=== PATIENT | female | born 1985 | race Caucasian/White ===

== ENCOUNTER → 2023-06-25 08:12 | Outpatient (CLI) | payer OTHER, SELFPAY ==
--- NOTE | ~2023-06-25 | MMUS_ITS ---
EXAMINATION: MM diagnostic eda BI w flora, US breast LT limited HISTORY: Palpable mass in the upper outer quadrant of the left breast TECHNIQUE: Craniocaudal, mediolateral, and mediolateral oblique 3-D tomosynthesis images of the nya ts were performed and synthetic 2-D images were generated. CAD analysis was submitted and interpreted . High resolution limited left breast ultrasound was performed. COMPARISON: None, baseline BREAST PARENCHYMAL COMPOSITION: The breasts are heterogeneously dense, which may obscure small masses . FINDINGS: MAMMOGRAPHIC FINDINGS: Right breast: No suspicious mass, calcification, or architectural distortion are identified to sugges t malignancy. Left breast: There is a 12 mm x 10 mm oval, circumscribed, equal density mass in the middle third of the upper outer quadrant of the breast at the 2:00 location corresponding to the palpable abnormality of concern. ULTRASOUND: There is a 12 mm x 9 mm oval, circumscribed, parallel, slightly hypoechoic mass with posterior acoust ic enhancement and internal vascularity at the 1:00 location, 8 cm from the nipple in the left breast corresponding to the palpable abnormality of concern. IMPRESSION: 1. Probably benign left breast mass corresponding to the palpable abnormality of concern. 2. Recommend 6 month follow-up targeted left breast ultrasound. BI-RADS category 3, probably benign findings. Reviewed, dictated and finalized at location A. IMPRESSION: 1. Probably benign left breast mass corresponding to the palpable abnormality o f concern. 2. Recommend 6 month follow-up targeted left breast ultrasound. BI-RADS category 3, probably benign findings.
== END ==
PROVIDERS: PCP Nurse Practitioner Obstetrics & Gynecology; Visit Provider Nurse Practitioner Obstetrics & Gynecology
DX: N63.20 Unspecified lump in the left breast, unspecified quadrant (principal); R92.8 Other abnormal and inconclusive findings on diagnostic imaging of breast
CPT/HCPCS: 76642; 77062; 77066; G0279

== ENCOUNTER 2024-01-25 09:14 | Outpatient (CLI) | payer OTHER, SELFPAY ==
--- NOTE | ~2024-01-25 | US_ITS ---
US breast LT limited DATE: 01/25/2024 12:58 INDICATION: Six-month follow-up of probably benign 1:00 8 cm from nipple approximately 12 x 9 mm slig htly hypoechoic mass noted on 06/25/2023 limited left breast ultrasound examination TECHNIQUE: Targeted ultrasound, flow imaging at 1:00 8 cm from nipple COMPARISON: 06/25/2023 limited left breast ultrasound 06/25/2023 bilateral diagnostic mammogram FINDINGS: Relatively stable circumscribed hypoechoic mass at 1:00 8 cm from nipple, with through arizmendi smission, minimal internal color flow signal. The mammographic and sonographic features and little in terval change in size since 06/25/2023 failure benign diagnosis. IMPRESSION: BI-RADS Category 2: Benign Recommendation: Routine annual mammographic screening Reviewed, dictated and finalized at Location A. Reviewed, dictated and finalized at location A.
== END 2024-01-25 09:15 ==
LOC: MICIMG 09:14
PROVIDERS: PCP Nurse Practitioner Obstetrics & Gynecology; Visit Provider Nurse Practitioner Obstetrics & Gynecology
DX: R92.8 Other abnormal and inconclusive findings on diagnostic imaging of breast (principal)
CPT/HCPCS: 76642

== ENCOUNTER 2025-05-28 15:34 | Outpatient (CLI) | payer OTHER, SELFPAY ==
--- NOTE | ~2025-05-28 | MM_ITS ---
EXAMINATION: MM screening eda BI w flora HISTORY: Screening TECHNIQUE: Craniocaudal and mediolateral oblique 3-D tomosynthesis images were obtained and synthetic 2-D images were generated. CAD analysis was submitted and interpreted. COMPARISON: Comparison to multiple prior studies sequentially, with oldest reviewed study dated 06/25. BREAST PARENCHYMAL COMPOSITION: Dense: The breasts are heterogeneously dense, which may obscure small masses FINDINGS: There is an enlarging mass in the upper outer quadrant of the left breast. The right breast is stable without evidence for malignancy. IMPRESSION: 1. Enlarging left breast mass. 2. Additional mammographic views and possible breast ultrasound are recommended. BI-RADS Category 0: Incomplete: Needs additional imaging evaluation. Reviewed, dictated and finalized at location B. IMPRESSION: 1. Enlarging left breast mass. 2. Additional mammographic views and possible breast ultrasound are recommended . BI-RADS Category 0: Incomplete: Needs additional imaging evaluation.
== END 2025-05-28 15:35 | disposition home or self-care (01) ==
PROVIDERS: PCP Obstetrics & Gynecology Gynecology; Visit Provider Obstetrics & Gynecology Gynecology
DX: Z12.31 Encounter for screening mammogram for malignant neoplasm of breast (principal); R92.8 Other abnormal and inconclusive findings on diagnostic imaging of breast
CPT/HCPCS: 77063; 77067

== ENCOUNTER 2025-08-21 07:41 | Outpatient (CLI) | payer OTHER, SELFPAY ==
--- NOTE | ~2025-08-21 | MMUS_ITS ---
EXAMINATION: MM diagnostic eda BI w flora, US breast BI limited INDICATION: 39-year old female; BI-RADS 0, callback from screening mammogram to evaluate an enlarging left breast mass and a new palpable lump in the upper right breast. COMPARISON: 05/28/2025 and 06/25/2023. TECHNIQUE: Digital breast tomosynthesis True lateral and spot compression of the BILATERAL breast were obtained. A radiopaque skin marker identifies location of right breast palpable lump. FINDINGS: The breasts are heterogeneously dense, which may obscure small masses. Circumscribed mass persists in the superior lateral at middle depth in the left breast. This mass has increased in size in the interval. There is no persistent mammographic abnormality that correlates to the area of palpable lump in the right breast. BILATERAL BREAST ULTRASOUND FINDINGS: Targeted sonographic evaluation of the areas of concern bilaterally was completed. Left breast: At 1:00, 8 cm FN, corresponding to the enlarging mass on mammogram, a round hypoechoic circumscribed mass measuring 1.3 x 1.4 x 1.2 cm is redemonstrated. This mass is larger compared to prior measurement of 1.0 x 1.2 x 0.8 cm on the prior examination completed on 06/25/2023. There is an additional cluster of cysts at 12:00, 6 cm from the nipple in the left breast that measure 0.6 cm Right breast: No sonographic abnormality correlates to the area of palpable lump. IMPRESSION: 1. Indeterminate enlarging Left breast mass at 1:00 location. Recommend biopsy under ultrasound guidance. 2. Left breast cluster of cysts at 12:00 location is considered benign. No further investigation necessary. 3. No mammographic or sonographic abnormality correlate to the area of palpable lump in the Right breast. RECOMMENDATION: Ultrasound-guided core biopsy of left breast mass at 1:00. Clinical management of right breast palpable lump. BI-RADS 4, SUSPICIOUS Reviewed, dictated and finalized at location B. IMPRESSION: 1. Indeterminate enlarging Left breast mass at 1:00 location. Recommend biopsy under ultrasound guidance. 2. Left breast cluster of cysts at 12:00 location is considered benign. No fur ther investigation necessary. 3. No mammographic or sonographic abnormality correlate to the area of palpabl e lump in the Right breast. RECOMMENDATION: Ultrasound-guided core biopsy of left breast mass at 1:00. Clinical management of right breast palpable lump. BI-RADS 4, SUSPICIOUS
== END 2025-08-21 07:42 | disposition home or self-care (01) ==
LOC: MICIMG 07:42
PROVIDERS: PCP Student in an Organized Health Care Education/Training Program; Visit Provider Student in an Organized Health Care Education/Training Program
DX: R92.8 Other abnormal and inconclusive findings on diagnostic imaging of breast (principal); N63.21 Unspecified lump in the left breast, upper outer quadrant; N60.12 Diffuse cystic mastopathy of left breast
CPT/HCPCS: 76642; 77062; 77066; G0279

== ENCOUNTER 2025-09-11 08:44 | Outpatient (CLI) | payer OTHER, SELFPAY ==
--- NOTE | ~2025-09-11 | MMUS_ITS ---
MM post biopsy diagnostic LT, US breast biopsy LT w image EXAMINATION: US GUIDED NEEDLE BIOPSY WITH VACUUM ASSISTANCE DATE: 09/11/2025 10:10 CALL OR CONTACT CENTRE COACH INDICATION: Left breast mass and known prior examination. Ultrasound-guided core biopsy is requested to evaluate for malignancy. BREAST PARENCHYMAL COMPOSITION: Dense: The breasts are heterogeneously dense, which may obscure small masses TECHNIQUE AND FINDINGS: The risks and potential benefits of the procedure were discussed with the patient, and written informed consent was obtained. After sterile preparation of the left breast, 1% lidocaine was utilized for local anesthesia. 1% lidocaine with epinephrine was used for deep anesthesia. A 10G vacuum-assisted biopsy gun needle was advanced through to the outer edge of the region of interest from a lateral approach utilizing sonographic guidance. A total of 4 tissue core samples were obtained through the lesion. An Inrad tissue marker clip was then placed at the biopsy site. Hemostasis was achieved. The patient tolerated procedure well and there was no evidence of immediate complication. The patient was given verbal instructions partly is from the department. Left breast mammograms to document tissue marker clip placement. The tissue samples were submitted to surgical pathology for histologic analysis. IMPRESSION: 1. Successful ultrasound-guided vacuum-assisted biopsy of left breast mass with post procedure mammogram for marker placement. Please refer to pathology report for histologic analysis. Reviewed, dictated and finalized at location B. OR CONTACT CENTRE COACH IMPRESSION: 1. Successful ultrasound-guided vacuum-assisted biopsy of left breast mass wit h post procedure mammogram for marker placement. Please refer to pathology repo rt for histologic analysis.
--- OUTSIDE RECORDS SUMMARY | 2025-09-11 09:00 | XMS_ITS | Clinical Summary ---
Author Organization [facility] Address [address] [place] [address] Care Team Providers Care Human Resources Operations Coordinator Name Role Phone Unavailable Primary Care Provider Unavailabl e Source Comments [facility],non-owned Affiliates and Associated Physician Practices is amultiple site organization consisting of ambulatory clinics and hospital sitesin [place], [place], [place] and [place]. This disclosure is being madepursuant to the Care Everywhere program and may not contain all information available regarding this patient. 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 Gender Identity Not on file Sexual Orientation Not on file Plan of Treatment Health Maintenance Due Date Last Done Comments HIV SCREENING 2002 HEPATITIS C SCREENING 09/24/2005 DTAP/TDAP/TD VACCINES (1 - Tdap) 2006 HEPATITIS B VACCINE (1 of 3 - 19+ 3-dose series) 2006 HPV VACCINE (1 - 3-dose SCDM series) 2014 PAP with HPV 2017 Cervical Cancer Screening 09/21/2024 PAP SMEAR 09/21/2024 09/21/2021, 09/21/2021 DEPRESSION SCREENING 10/29/2024 COVID-19 VACCINE (1 - 2024-2 6 season) 2025 INFLUENZA VACCINE (#1) 2025 ZOSTER VACCINE (1 of 2) 2037 HIB VACCINE Aged Out No longer eligi ble based on patient's age to complete this topic MENINGOCOCCAL (Group B) VACCINE SHARED DECISION-MAKING Aged Out No longer eligible based on patient's age to complete this topic MENINGOCOCCAL GROUPS A/C/Y/W VACCINE Aged Out No longer eligible b ased on patient's age to complete this topic PNEUMOCOCCAL VACCINE Aged Out No long er eligible based on patient's age to complete this topic
--- OUTSIDE RECORDS SUMMARY | 2025-09-11 09:00 | XMS_ITS | Clinical Summary ---
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 Phone Krishna Javier MD Primary Care Provider [phone] Allergies No known active allergies Medications No known medications Social History Tobacco Use Types Packs/Day Years Used Date Smoking Tobacco: Every Day Smokeless Tobacco: Current Alcohol Use Standard Drinks/Week Comments Yes 0 (1 standard drink = 0.6 oz pur e alcohol) Comments Unknown Sex and Gender Information Value Date Recorded Sex Assigned at Not on file Legal Sex Female 10:46 AM CDT Gender Identity Not on file Sexual Orientation Not on file Last Filed Vital Signs Vital Sign Reading Time Taken Comments Blood Pressure 111/64 04/05/2018 1:00 PM CDT Pulse 73 04/05/2018 1:00 PM CDT Temperature 36.5 C (97.7 F) 04/05/2018 10:51 AM CDT Respiratory Rate 15 04/05/2018 1:00 PM CDT Oxygen Saturation 97% 04/05/2018 1:00 PM CDT Inhaled Oxygen Concentration - - Weight 59.9 kg (132 lb) 04/05/2018 10:51 AM CDT Height 165.1 cm (5' 5) 04/05/2018 10:51 AM CDT Body Mass Index 21.97 04/05/2018 10:51 AM CDT Plan of Treatment Health Maintenance Due Date Last Done Comments Annual Physical 1990 Hepatitis C 2005 DTaP, Tdap and Td Vaccines (1 - Tdap) 2006 Hepatitis B Vaccines (1 of 3 - 19+ 3-dose series) 2006 Pneumococcal Vaccine: Pediatrics (0 to 5 Years) and At-Risk Patients (6 to 49 Years) (1 of 2 - PCV) 2006 HPV Vaccines (1 - 3-dose SCDM series) 2014 Cervical Cancer Screening Pap with HPV Testing (Age 30 to 64) Every 5 Years 2017 Cervical Cancer Screening Pap Smear (Age 30 to 64) Every 3 Years 09/21/2024 09/21/2021 Cervical Cancer Screening with HPV 09/21/2024 COVID-19 Vaccine ( - season) 2025 07/14/2021, 06/23/2021 Influenza Adult (#1) 2025 08/28/2022, 08/26/2021, 08/24/2020, Additional history exists Hepatitis A Vaccines Aged Out No long er eligible based on patient's age to complete this topic Meningococcal B Vaccine Aged Out No l onger eligible based on patient's age to complete this topic Meningococcal Vaccine Aged Out No adrian marcello eligible based on patient's age to complete this topic RSV Immunizations Under 20 Months Aged Out No longer eligible based on patient's age to complete this topic Insurance [facility] Care Teams Die Casting Machine Maintainer Relationship Specialty Start Date End Date Krishna Javier MD [address] [place] [address] PCP - General FAMILY MEDICINE SPORTS MEDICINE 05/24/23
--- OUTSIDE RECORDS SUMMARY | 2025-09-11 09:00 | XMS_ITS | Data Portability ---
Author Organization [facility] [place] Address [address] [place] [address] Care Team Providers Care Premises Technician Name Role Phone HEATHER WEN Primary Care Provider [phone] Assessment Encounter Date Assessment Date Assessment LastModified by Organization Details LastModified Time 09/21/2021 09/21/2021 Annual gynecological exam performed. Patient will come back in a year unless there are new symptoms. Not available 09/21/2021 11:29:54 06/01/2023 06/01/2023 Annual gynecological exam performed. Patient will come back in a year unless there are new symptoms. Not available 06/01/2023 10:12:13 10/08/2024 10/08/2024 Annual gynecological exam performed. Patient will come back in a year unless there are new symptoms. [email or web address] Not available 10/08/2024 10:55:12 Plan of Treatment Reminders Order Date Submit Date Provider Last Modified By Organization Details Last Modified Time Details Appointments None recorded. Lab None recorded. Referral breast center referral 2023 024 CALLUM Knight MD, [address], [place], [address], 05:00:56 pelvic floor therapy referral - Please contact Lorenza and schedule her for an appt for pelvic floor therapy. I believe that you do accept her insurance, if not, please let me know. Thank you, KELLIE Rhodes [phone] [facility], [address], [address], [place], [address], 2 05:01:16 Procedures None recorded. Surgeries None recorded. Imaging US, breast, unilateral , w/ axilla 2022 023 [facility], [address], [address], [place], [address], 3 12:36:40 Medication Orders None recorded. Patient TargetsNo targets recorded. Patient InstructionsNo instructions recorded. Reason for Referral Pelvic Floor Therapy Referra dotty for Deep pain on intercourse Please contact Lorenza and schedule her for an appt for pelvic floor therapy. I believe that you do accept her insurance, if not, please let me know. Thank you, Meagan [facility] [phone] Referring Physician: Anita Hidalgo, CULINARY SPECIALIST, Encounter Date: 09/21/2021 Breast Center Referral for M ass of left breast Referring Physician: Whitney Archer, Gynecology, Encounter Date: 10/08/2024 Results Created Date Observation Date Name Description Value Unit Range Abnormal Flag Note LastModifiedBy Organization Detail LastModifiedTime 09/21/20 21 09/21/2021 IMAGE GUIDE D PAP AND HPV REGAR DLESS image guided Pap, HPV regardless of Pap result SEE RESULT S BELOW CASE REPOR T: Cytol ogy Gynec ologi lele Repor t Case: [id number] Autho preet hawley Provi olive: Aldo Paula Colle cted: 09/21 1458 SERVER SECURITY ADMINISTRATOR Order ing Locat ion: [place] Patho logy Recei renan: 09/22 0029 First Scree n: Sheyla Ramirez ret, CT Rescr een: Ada Roberts, CT Speci men: Scree mary ann Pap - Image d, Cervi x STATE MENT OF ADEQU ACY: Satis facto ry for evalu ation Trans forma tion zone compo nent prese nt FINAL DIAGN OSIS: Negat saida for Intra epith elial Lesio n or [place] (NIL) . Elect yon calderon pastor d by Lesvia perez, Ada connor, CT on 2020 at 7:53 PM ----- ----- ----- ----- ----- ----- ----- ----- ----- ----- ----- ----- ----- ----- ----- ----- ----- ---- HPV RESUL TS: HPV mRNA E6/E7 : No HPV mRNA Detec abiola NOTE: This high risk HPV mRNA assay detec ts fourt een high- risk HPV types (16, 18, 31, 33, 35, 39, 45, 51, 52, 56, 58, 59, 66, 68) witho ut diffe renti ation . COMME NT: Note: This speci men was revie wed by a Cytot echno logis t and/o r Patho logis t (as indic ated in this repor t) after evalu ation using the Thinp rep Imagi ng Syste m. CLINI LELE INFOR MATIO N: Menst rual Statu s: LMP (if appli cable ): Clini elle Histo ry/Pr eviou s Pap: Type of Neopl divina (if appli cable ): Signi fican t Clini lele Findi ngs: Other Histo ry: Hormo niharika (if appli cable ): PAP EDUCA PARADISE L NOTE: The Pap Test is a scree mary ann test with an inher ent false negat saida rate. Liqui d-bas e sampl ing may decre ase, but will not elimi ruperto, false negat saida resul ts. A negat saida resul t does not precl ude the prese nce and/o r devel opmen t of disea se, since the prese nce of abnor mal cells in the sampl e depen ds on the locat ion of the lesio n and sampl ing techn ique. Alexis nued regul ar scree mary ann is the best metho d of cance r preve ntion . If repor abiola cytol ogic findi ng do not corre late with physi lele and/o r histo rical findi ngs, furth er inves tigat ion is recom hussein d, as clini hernando wells nted. Not Available [facility] ([facility]) [address], [place], [address], 09/30/2021 20:56:19 06/01/20 23 06/01/2023 IMAGE GUIDE D PAP AND HPV REGAR DLESS image guided Pap, HPV regardless of Pap result SEE RESULT S BELOW CASE REPOR T: Cytol ogy Gynec ologi lele Repor t Case: [id number] Autho preet g Provi olive: Aldo Paula Colle cted: 06/01 1412 SERVER SECURITY ADMINISTRATOR Order ing Locat ion: [place] Patho logy Recei renan: 06/02 0240 First Scree n: Sheyla Ramirez ret, CT Speci men: Scree mary ann Pap - Image d, Cervi x STATE MENT OF ADEQU ACY: Satis facto ry for evalu ation Trans forma tion zone compo nent prese nt FINAL DIAGN OSIS: Negat saida for Intra epith elial Lesio n or [place] (NIL) . Elect yon calderon pastor d by Sheyla Ramirez ret, CT on 023 at 11:18 AM ----- ----- ----- ----- ----- ----- ----- ----- ----- ----- ----- ----- ----- ----- ----- ----- ----- ---- HPV RESUL TS: HPV mRNA E6/E7 : No HPV mRNA Detec abiola NOTE: This high risk HPV mRNA assay detec ts fourt een high- risk HPV types (16, 18, 31, 33, 35, 39, 45, 51, 52, 56, 58, 59, 66, 68) witho ut diffe renti ation . COMME NT: This speci men was revie wed by a Cytot echno logis t and/o r Patho logis t (as indic ated in this repor t) after evalu ation using the Thinp rep Imagi ng Syste m. CLINI LELE INFOR MATIO N: Menst rual Statu s: LMP (if appli cable ): Clini lele Histo ry/Pr eviou s Pap: Type of Neopl divina (if appli cable ): Signi fican t Clini lele Findi ngs: Other Histo ry: Hormo niharika (if appli cable ): PAP EDUCA PRAADISE L NOTE: The Pap Test is a scree mary ann test with an inher ent false negat saida rate. Liqui d-bas ed sampl ing may decre ase, but will not elimi ruperto, false negat saida resul ts. A negat saida resul t does not precl ude the prese nce and/o r devel opmen t of disea se, since the prese nce of abnor mal cells in the sampl e depen ds on the locat ion of the lesio n and sampl ing techn ique. Alexis nued regul ar scree mary ann is the best metho d of cance r preve ntion . If repor abiola cytol ogic findi ng do not corre late with physi lele and/o r histo rical findi ngs, furth er inves tigat ion is recom hussein d, as clini hernando wells nted. Not Available [facility] ([facility]) [address], [place], [address], 06/04/2023 13:53:40 06/26/20 23 06/25/2023 MAMMO , diagn ostic , bilat eral No observ ation record ed. [facility] [address], [place], [address], 07/03/2023 11:22:19 06/26/20 23 06/25/2023 US, nya t, unila teral , w/ axill a No observ ation record ed. [facility] [address], [place], [address], 07/03/2023 11:22:19 03/29/20 24 01/25/2024 US, breas t, unila teral , w/ axill a No observ ation record ed. [facility] [address], [place], [address], 01/29/2024 10:46:03 06/10/20 25 05/28/2025 imagi ng/di agnos tic resul t No observ ation record ed. [facility] [address], [place], [address], 06/10/2025 11:43:06 07/13/20 25 05/28/2025 MAMMO , scree mary ann, digit al, bilat eral No observ ation record ed. [email or web address] [facility] [address], [place], [address], 07/16/2025 17:06:29 08/21/20 25 08/21/2025 MAMMO , diagn ostic , digit al, bilat eral No observ ation record ed. [email or web address] [facility] [address], [place], [address], 08/25/2025 12:53:49 08/24/20 25 08/21/2025 MAMMO , diagn ostic , digit al, bilat eral No observ ation record ed. [email or web address], [place], [address], 08/25/2025 15:34:41 Result Notes None recorded. Procedures Surgical History Date Name Laterality Status Provider Name and Address Organization Details Recorded Time 3 Date of Last Mammogram completed [facility] 10/08/2024 10:56:18 3 Date of Last Pap Smear completed [facility] 10/08/2024 10:55:35 01/01/201 1 Caesarean Section completed [facility] 09/21/2021 11:35:42 5 Dilation and Curettage completed [facility] 09/21/2021 11:35:33 Imaging Results None recorded. Procedure Notes None recorded. Medical Equipment None Reported. Allergies No known drug allergies Medications Name Sig Start Date Stop Date Status Note LastModified by Organization Details LastModified Time valacyclovir 1 gram tablet 06/01 completed Not Available Not Available Not Available prednisone 20 mg tablet 06/01 completed Not Available Not Available Not Available metronidazole 500 mg tablet 06/01 completed Not Available Not Available Not Available amoxicillin 875 mg tablet 06/01 completed Not Available Not Available Not Available hydrocodone 7.5 mg-acetaminophe n 325 mg tablet 06/01 completed Not Available Not Available Not Available gabapentin 300 mg capsule 06/01 completed Not Available Not Available Not Available Chantix 1 mg tablet 06/01 completed Not Available Not Available Not Available Vitals Date Recorded Body height Body mass index (BMI) Body weight Systolic And Diastolic Provider Name and Address Organization Details Last Updated DateTime 06/01/2023 163.2 cm 25 kg/m2 18176.08 g 113/75 mm[Hg] Tawny Zeng [facility] 06/01/2023 10:12:43 Date Recorded Body height Body mass index (BMI) Body weight Systolic And Diastolic Provider Name and Address Organization Details Last Updated DateTime 09/21/2021 163.2 cm 23.5 kg/m2 25316.75 g 105/68 mm[Hg] [facility] 09/21/2021 11:31:55 Date Recorded Body height Body mass index (BMI) Body weight Systolic And Diastolic Provider Name and Address Organization Details Last Updated DateTime 10/08/2024 163.2 cm 25.5 kg/m2 86619.86 g 114/79 mm[Hg] Yolanda Villar [facility] 10/08/2024 11:00:12 Social History Question Answer Notes LastModified by Organizat ion Details LastModified Time Tobacco Smoking Status Current Every Day Smoker Tawny Zeng [facility], [facility] 06/01/2023 10:14:18 Do You Have An Advance Directive? No Information n ot available 09/21/2021 How Many Years Have You Consumed Alcohol? 12 Information not available 09/21/2021 Are You Blind Or Do You Have Difficulty Seeing? No Information n ot available 09/21/2021 What Is Your Level Of Caffeine Consumption? Heavy Information not available 09/21/2021 How Much Tobacco Do You Chew? None Information not available 09/21/2021 In The 14 Days Before Symptom Onset, Have You Had Close Contact With A Laboratory-confirm ed COVID-19 While That Case Was Ill? No Information n ot available 09/21/2021 In The 14 Days Before Symptom Onset, Have You Had Close Contact With A Person Who Is Under Investigation For COVID-19 While That Person Was Ill? No Information not available 09/21/2021 Have You Been To An Area Known To Be High Risk For COVID-19? No Information not available 09/21/2021 Are You Deaf Or Do You Have Serious Difficulty Hearing? No Information not available 09/21/2021 What Type Of Diet Are You Following? REGULAR Information n ot available 09/21/2021 What Is The Highest Grade Or Level Of School You Have Completed Or The Highest Degree You Have Received? [id number] Information not available 09/21/2021 Are There Any Guns Present In Your Home? No Information not available 09/21/2021 Do You Use Protection During Sex? No Information not available 09/21/2021 Do You Use Your Seat Belt Or Car Seat Routinely? Yes Information not available 09/21/2021 Do You Have Smoke And Carbon Monoxide Detectors In Your Home? Yes Information not available 09/21/2021 At What Age Did You Start Smoking Tobacco? 17 Information not available 09/21/2021 How Much Tobacco Do You Smoke? 1 PPD Information not available 06/01/2023 Do You Use Sunscreen Routinely? No Information not available 09/21/2021 How Many Years Have You Smoked Tobacco? 20 Information not available 06/01/2023 Have You Used IV Drugs? No Information not available 09/21/2021 Sex: Unknown Functional Status Question Answer Note LastModified by Organizat ion Details LastModified Time Do you use any illicit or recreational drugs? No Information not available 09/21/2021 What is your level of alcohol consumption? Occasional Information not available 09/21/2021 Are you able to walk independently without assistance or assistive devices? 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 Moderate Information not available 09/21/2021 Mental Status Question Answer Note LastModified by Organization D etails LastModified Time Do you feel stressed (tense, restless, nervous, or anxious, or unable to sleep at night)? AB0551-0 Information not available 09/21/2021 Family History Relationship Description Onset Age of this Age Resolved Age Notes LastModified by Organization Details LastModified Time Father Hypertensive disorder Not available 2020 11:32:02 Mother Hypertensive disorder Not available 2020 11:32:02 Medical History Condition Response Allergies (Food, seasonal, environmental ) N Other N Breast Cancer N Drug/Latex Allergies/Reactions N Blood Transfusion N Dermatologic Disorders N Lung Disease N Defects or Inherited Disease N Breast Problem N Gestational Diabetes N Hematologic disorders N Anesthesia Complications N History of STI N Deep Vein Thrombosis N Polycystic ovary syndrome N Anxiety Disorder N Autoimmune disease N Arthritis N Infertility N Polyps N Acid Reflux (GERD) N History of abnormal pap N Cancer N Stroke N Varicosities N Neurologic/Epilepsy N Endometriosis N High Cholesterol N Headaches N Fibromyalgia N Kidney Disease N Heart Problems N Kidney or Bladder Problems N Thyroid Problems N GI Problems N Eating Disorder N Anemia N Art (IVF or FET) N Psychiatric Illness N Ovarian Cancer N Diabetes N Pulmonary (TB, Asthma) N Hepatitis/Liver Disease N No Past Medical History N Eczema N Urinary Tract Infection N Abuse/Domestic Violence N Asthma N Trauma/Violence N Depression/ depression N Heart Disease N Pre-Eclampsia N Hypertension N Osteoporosis N Thrombophilias N Gynecological History Statement/Question Response Abnormal Pap Y Flow Heavy Date of Last Mammogram 06/26/2023 Date of LMP 09/22/2024 N On BCP's at Conception? N STIs/STDs Yes Was last menstrual period normal Y HPV Vaccine N Duration of Flow (days) 7 12 Current Control Method None Age at First Child 20 Are cycles usually normal Y Frequency of Cycle (Q days) 30 Sexually Active? Y Menses Monthly Y Age of first menstrual cycle 14 Date of Last Pap Smear 06/01/2023 Sexual Problems? N LMP Definite N Obstetrics History GPAL:G 4 P 0 0 1 3 Type Value Spontaneous 1 Living 3 Total 4 Past Encounters Encounter ID Performer Location Encounter Start Date Encounter Closed Date Diagnosis/Indication Diagnosis SNOMED-CT Code Diagnosis ICD10 Code Diagnosis IMO Codes Diagnosis Note [id number] [facility] [address] [address] 09/21/2021 10:28:53 09/26/2021 13:12:14 Gynecologic examination [id number] Z01.419 Take Calcium with Vitamin D 1200mg daily if not receiving in daily diet. It is strongly advised to have an annual flu shot and up can obtain at most pharmacies . If you have not had a TDap shot in the last 10 years you should obtain one as well. Discussed with patient & provided with informatio n regarding Gardisil vaccine to prevent the 4 strains for HPV that cause cervical cancer if under age 26. Encourage safe sexual practices, to use condoms and limit partners if not already in a monogamous relationsh ip. Do monthly self breast exams. Have mammogram yearly or every other year depending on family history. BRCA testing is now available for patients with strong genetic history of female cancer. If interested contact the office. Engage in daily exercise of low impact aerobic exercise 45-60 minutes 4-5 times weekly. Avoid tobacco and illicit drugs as well as using moderation with alcohol intake less than 1-2 8 oz beverages daily. This lifestyle behavior pattern will lead to less health conditions and longer life span. If BMI greater than 25 weight watchers or dietary consult advised. Patient received above instructio ns, and questions have been answered. If you have any questions please call or respond to this email. Patient was made aware of the patient portal and may obtain a paper copy of today's plan if desired. Pap/hpv sentSTD declinedGe netic screen discussed Deep pain on intercourse [id number] N94.12 Trial of Pelvic floor PT for long time issue with random deep dyspareuni a and random lower right r/t pelvic muscle spasms. [id number] [facility] [address] [address] 06/01/2023 09:52:26 06/01/2023 10:40:15 Gynecologic examination 51345952 Z01.419 Z11.51 Take Calcium with Vitamin D 1200mg daily if not receiving in daily diet. It is strongly advised to have an annual flu shot and up can obtain at most pharmacies . If you have not had a TDap shot in the last 10 years you should obtain one as well. Discussed with patient & provided with informatio n regarding Gardisil vaccine to prevent the 4 strains for HPV that cause cervical cancer if under age 26. Encourage safe sexual practices, to use condoms and limit partners if not already in a monogamous relationsh ip. Do monthly self breast exams. Have mammogram yearly or every other year depending on family history. BRCA testing is now available for patients with strong genetic history of female cancer. If interested contact the office. Engage in daily exercise of low impact aerobic exercise 45-60 minutes 4-5 times weekly. Avoid tobacco and illicit drugs as well as using moderation with alcohol intake less than 1-2 8 oz beverages daily. This lifestyle behavior pattern will lead to less health conditions and longer life span. If BMI greater than 25 weight watchers or dietary consult advised. Patient received above instructio ns, and questions have been answered. If you have any questions please call or respond to this email. Patient was made aware of the patient portal and may obtain a paper copy of today's plan if desired.Pa p/hpv sent STD Screen declined Genetic Screen discussed Colon Screen na Dexa Screen na Routine Labs PCP Mass of left breast 1224 [id number] N63.20 Will contact to schedule [id number] Alcides Cerrato MD [facility] [address] [address] 10/08/2024 10:53:45 10/08/2024 11:29:38 Gynecologic examination [id number] Z01.419 Annual gynecologi lele exam performed. Patient will come back in a year unless there are new symptoms. Suggest Calcium with Vitamin D if not eating in diet. Patient advised to get annual flu shot. Recommend yearly physicals and perform monthly breast exams. Genetic testing is available for patients with family history of cancer. Engage in safe sexual practices, use condoms. Encouraged to have daily exercise. Avoid tobacco and illicit drugs, moderation of alcohol. If BMI greater than 25 dietary consult advised. If you have any questions please call or email. Pap smear- UTD (2022 - WNL), will repeat in 2025 per ASCCP guidelines laboratory evaluation - PCP STI testing - declined Mass of left breast 1224 [id number] 9702576 N63.20 Discussed that left breast mass appears to be unchanged in size from previous exam/repor t.Recommen ded yearly mammogram/ ultrasound to monitor breast mass (due in 2024 for yearly screening) , and/or having a consult with breast specialist to confirm benign mass and to get their recommenda tion.Zeeshan nt interested in breast center referral.P atient to continue to monitor and report any breast changes. Health Concerns Section Related Observation LastModified by Organization Detai ls LastModified Time None Recorded Concern Status LastModified by Organization Details LastModified Time None Recorded Advance Directives Directive N: Payers Insurance Date Sequence Insurance Name Policy Number Policy Chen Covered Member ID Chen Member ID Guarantor Name 09/20/2021 1 [place] [facility] - DOS PRIOR TO 2025 (MEDICAID REPLACEMENT - HMO) Elvin Carranza [id number] Lorenza Carranza 05/16/2023 1 [place] [id number] Elvin Carranza [id number] Lorenza Carranza 10/12/2024 1 [employer] [id number] Lorenza Carranza [id number] Lorenza Carranza 10/08/2024 2 [facility] - DOS ON OR AFTER 21 (MEDICAID REPLACEMENT - HMO) Lorenza Carranaz [id number] Lorenza Carranza 10/11/2024 2 [employer] Elvin Carranza [id number] Lorenza Carranza Notes Date Note Type Note Provider Name and Address Organization Details Recorded Time 1 text/html Annual GYNReported by PatientGenitourinary symptomsFor menstrual cycle, patient reportsnormal menses. For urinary symptoms, patient reportsno hematuriaandno incontinence. For vulva, patient reportsno genital lesion. For vagina, patient reportsnormal vaginal discharge.Breast symptomsFor breast, patient reportsno breast pain,no breast lump, andno nipple discharge.ContraceptionFo r current contraception, patient reportsbirth control not practiced.Endocrine symptomsFor sexual complaints, patient reportsno sexual complaints,no pain during intercourse, andnormal libido. For menopausal symptoms, patient reportsno menopausal symptomsandnormal vaginal lubrication.Psychological symptomsFor psychological symptoms, patient reportsno depression,no anxiety, andno pmdd.Preventative measuresFor preventive measures, patient reportsencourage self breast examination,encourage regular exercise,encourage no tobacco use, andencourage regular mammograms starting age 40. Deep pain on intercourse. [facility]ita Hidalgo [facility] [address], [place], [address], [facility] 09/26/2021 09:05:31 3 text/html Annual GYNReported by PatientHistoryFor history, patient reportsno gynecologic complaints.Genitourinary symptomsFor menstrual cycle, patient reportsnormal menses. For urinary symptoms, patient reportsno hematuriaandno incontinence. For vulva, patient reportsno genital lesion. For vagina, patient reportsnormal vaginal discharge.Breast symptomsFor breast, patient reportsno breast pain,no breast lump, andno nipple discharge.ContraceptionFo r current contraception, patient reportssatisfied with current contraceptionandbirth control not practiced.Endocrine symptomsFor sexual complaints, patient reportsno sexual complaints,no pain during intercourse, andnormal libido. For menopausal symptoms, patient reportsno menopausal symptomsandnormal vaginal lubrication.Psychological symptomsFor psychological symptoms, patient reportsno depression,no anxiety, andno pmdd.Preventative measuresFor preventive measures, patient reportsencourage self breast examination,encourage regular exercise,encourage no tobacco use,encourage regular mammograms starting age 40,followed with yearly pap smears, andhistory of abnormal pap smear/cervical dysplasia. Anita Hidalgo MARGARITA- [address], [place], [address], [facility] 06/01/2023 10:32:31 4 text/html Annual GYNReported by PatientGenitourinary symptomsFor menstrual cycle, patient reportsnormal menses. For urinary symptoms, patient reportsno hematuriaandno incontinence. For vulva, patient reportsno genital lesion. For vagina, patient reportsnormal vaginal discharge.Breast symptomsFor breast, patient reportsbreast lump (left breast lump - has been monitored with imaging - unchanged)but reportsno breast painandno nipple discharge.ContraceptionFo r current contraception, patient reportscondoms.Endocrine symptomsFor sexual complaints, patient reportsno sexual complaints,no pain during intercourse, andnormal libido. For menopausal symptoms, patient reportsno menopausal symptomsandnormal vaginal lubrication.Psychological symptomsFor psychological symptoms, patient reportsno depression,no anxiety, andno pmdd.Preventative measuresFor preventive measures, patient reportsencourage self breast examination,encourage regular exercise,encourage no tobacco use, andencourage regular mammograms starting age 40. Patient presents for annual well woman exam. Patient denies concerns today.Patient had diagnostic mammogram and follow-up left breast ultrasound in December due to left breast mass finding - BIRADS 3 (probably benign). Patient denies any changes to breast lump. WHITNEY ARCHER NP [address], [place], [id number], [facility] 10/08/2024 11:28:09 OBGyn Episode Ob Episode Information Episode Created Date Number of Fetuses Patient Bloodtype Patient rh Status Prepregnancy Weight lbs Domestic Partner Domestic Partner Phone Father Name Tableman Status 09/21/20 21 1 CLOSED Fetus Data First Name Last Name Admitted to NICU Weight (g) Sex Living Outcome Pediatric Complications Fetus ID Race Codes Race Delivery Type M [id number] Vaginal Delivery Dariusz Calculation Initial Dariusz Date Initial Exam Date Initial Exam Provider Initial Ultrasound Date Last Menstrual Period Date Ultra Sound Weeks Gestation 0 Eighteen To Twenty Week Dariusz Update Ultra Sound Date Fundal Height At Umbil Quickening Date Ultra Sound Latest Weeks Gestation Final Dariusz Confirmed By Final Dariusz Confirmed Date Final Dariusz Date Ultra Sound Latest Days Gestation 0 0 Menstrual History Last Menstrual Date Menses Monthly On Bcp Conception Prior Menses Frequency Hcg Plus Date Menarche Onset Age Delivery Information Delivery Date Delivery Type Labor Anesthesia Weeks Gestation Incision Type Labor Labor Length Hrs Delivered By Post Complications Tubal Sterilization Discharge Date Comments 6 Discharge Information Feeding Method Contraceptive Method Maternal HG B and HCT Levels Ob Episode Information Episode Created Date Number of Fetuses Patient Bloodtype Patient rh Status Prepregnancy Weight lbs Domestic Partner Domestic Partner Phone Father Name Tableman Status 09/21/20 21 1 CLOSED Fetus Data First Name Last Name Admitted to NICU Weight (g) Sex Living Outcome Pediatric Complications Fetus ID Race Codes Race Delivery Type F [id number] Vaginal Delivery Dariusz Calculation Initial Dariusz Date Initial Exam Date Initial Exam Provider Initial Ultrasound Date Last Menstrual Period Date Ultra Sound Weeks Gestation 0 Eighteen To Twenty Week Dariusz Update Ultra Sound Date Fundal Height At Umbil Quickening Date Ultra Sound Latest Weeks Gestation Final Dariusz Confirmed By Final Dariusz Confirmed Date Final Dariusz Date Ultra Sound Latest Days Gestation 0 0 Menstrual History Last Menstrual Date Menses Monthly On Bcp Conception Prior Menses Frequency Hcg Plus Date Menarche Onset Age Delivery Information Delivery Date Delivery Type Labor Anesthesia Weeks Gestation Incision Type Labor Labor Length Hrs Delivered By Post Complications Tubal Sterilization Discharge Date Comments 8 Discharge Information Feeding Method Contraceptive Method Maternal HG B and HCT Levels Ob Episode Information Episode Created Date Number of Fetuses Patient Bloodtype Patient rh Status Prepregnancy Weight lbs Domestic Partner Domestic Partner Phone Father Name Tableman Status 09/21/20 21 1 CLOSED Fetus Data First Name Last Name Admitted to NICU Weight (g) Sex Living Outcome Pediatric Complications Fetus ID Race Codes Race Delivery Type , Spontane ous [id number] Dariusz Calculation Initial Dariusz Date Initial Exam Date Initial Exam Provider Initial Ultrasound Date Last Menstrual Period Date Ultra Sound Weeks Gestation 0 Eighteen To Twenty Week Dariusz Update Ultra Sound Date Fundal Height At Umbil Quickening Date Ultra Sound Latest Weeks Gestation Final Dariusz Confirmed By Final Dariusz Confirmed Date Final Dariusz Date Ultra Sound Latest Days Gestation 0 0 Menstrual History Last Menstrual Date Menses Monthly On Bcp Conception Prior Menses Frequency Hcg Plus Date Menarche Onset Age Delivery Information Delivery Date Delivery Type Labor Anesthesia Weeks Gestation Incision Type Labor Labor Length Hrs Delivered By Post Complications Tubal Sterilization Discharge Date Comments 5 Discharge Information Feeding Method Contraceptive Method Maternal HG B and HCT Levels Ob Episode Information Episode Created Date Number of Fetuses Patient Bloodtype Patient rh Status Prepregnancy Weight lbs Domestic Partner Domestic Partner Phone Father Name Tableman Status 09/21/20 21 1 CLOSED Fetus Data First Name Last Name Admitted to NICU Weight (g) Sex Living Outcome Pediatric Complications Fetus ID Race Codes Race Delivery Type F [id number] Primary Dariusz Calculation Initial Dariusz Date Initial Exam Date Initial Exam Provider Initial Ultrasound Date Last Menstrual Period Date Ultra Sound Weeks Gestation 0 Eighteen To Twenty Week Dariusz Update Ultra Sound Date Fundal Height At Umbil Quickening Date Ultra Sound Latest Weeks Gestation Final Dariusz Confirmed By Final Dariusz Confirmed Date Final Dariusz Date Ultra Sound Latest Days Gestation 0 0 Menstrual History Last Menstrual Date Menses Monthly On Bcp Conception Prior Menses Frequency Hcg Plus Date Menarche Onset Age Delivery Information Delivery Date Delivery Type Labor Anesthesia Weeks Gestation Incision Type Labor Labor Length Hrs Delivered By Post Complications Tubal Sterilization Discharge Date Comments 1 Discharge Information Feeding Method Contraceptive Method Maternal HG B and HCT Levels
--- NOTE | 2025-09-11 09:55 | S_PTH ---
PATIENT: Lorenza Carranza LOC: [facility] U#:[id number] AGE/SX: 39/F ROOM: RE09/11/[address]: Leonor Knight MD : [id number] BED: DIS: 09/11/2025 SPEC #: [id number] RECD: 09/11/25 11:13 STATUS: MARISSA FOSTER #: [id number] EDMOND: 09/11/25 09:[address]: Leonor Knight DEPT: [facility] Surgical RECD BY: Aiyana Gibbs ENTERED: 09/11/25 11:15 SP TYPE: Surgical OTHR DR: Whitney Archer, TAX AUDIT MANAGER Tissues: A - Breast Biopsy Procedures: Hematoxylin and Eosin Stain Gross and Microscopic Level 4
== END 2025-09-11 08:45 | disposition home or self-care (01) ==
PROVIDERS: PCP Student in an Organized Health Care Education/Training Program; Visit Provider Surgery
DX: D24.2 Benign neoplasm of left breast (principal); N63.21 Unspecified lump in the left breast, upper outer quadrant; R92.8 Other abnormal and inconclusive findings on diagnostic imaging of breast
CPT/HCPCS: 19083; 77065; 88305; A4648